=== PATIENT | female | born 1990 | race Caucasian/White ===

== ENCOUNTER 2021-04-10 17:31 | Emergency (ER) | payer OTHER, SELFPAY ==
[2021-04-10 17:35] VITALS: BP 133/85; PULSE 105; RESP 21; TEMP 36.7; O2SAT 98; BMI 30.6
--- NOTE | 2021-04-10 17:57 | ECG_ITS ---
APPROVED REPORT Exam: Resting ECG HR:87 bpm ECG Measurements Heart Rate 87 AXES [place] 170 P 62 QRSd 88 QRS -32 QT 376 T 44 QTc 452 Conclusion Normal sinus rhythm Left axis deviation Low voltage QRS Abnormal ECG Electronically signed by : Isaiah Rubalcava, 04/11/2021 09:06:43
--- NOTE | 2021-04-10 17:59 | HMH.EDUTC ---
[facility] [place] Disposition Clinical Impression: Exercise intolerance Disposition: Home, Self-Care Condition on Discharge: Good Instructions: DI for Tachycardia Additional Instructions: Make sure that you call your Family Doctor first thing tomorrow morning for appointment for further testing and evaluation Straight to the ER if you start having Chest pain or any life threatening symptoms Further instructions and treatment per your Family Doctor Return if needed Avoid strenuous exercise until seen and evaluated by your Family Doctor or Cardiology Referrals: Nathalie Deng APRN [Primary Care Provider] - As needed (Call office first thing in the morning) Time of Disposition: 18:26 Medical Decision Making - Reinier Inquiry Pt receiving controlled substance: No Reinier was queried for this patient: No Vital Signs: 04/10/21 17:35 04/10/21 18:27 Temperature 98.0 F 98.0 F Temperature Source Temporal Artery Scan Pulse Rate 105 H Pulse Rate [Right Brachial] 105 H Respiratory Rate 21 21 Blood Pressure 133/85 Blood Pressure [Right Arm] 133/85 Blood Pressure Mean [Right Arm] 101 Blood Pressure Source [Right Arm] Automatic Cuff Blood Pressure Position [Right Arm] Sitting 02 Sat by Pulse Oximetry 98 Oxygen Delivery Method Room Air - ECG Data Tracing #1 I reviewed this ECG and interpreted as documented below: ECG initial impression date: 04/10/21 ECG initial impression time: 18:00 ECG normal with no acute: arrhythmias, ischemia, conduction abnormalities, chamber hypertrophy Normal Sinus Rhythm: Yes Additional Comments: EKG discussed with and reviewed by Dr Gamze ER Physician ECG compared to prior tracings: there are no prior tracings available for comparison - Physician Consults Physician Consulted: Nathalie Deng Time: 18:00 Reason -: Other Comment/Response: Spoke with patient PCP and informed her of patient reporting that her HR elevated after running up a hill and was at the highest at 127 per recording from BP monitor she had at home and she reports that she felt winded but denied CP, palpations, or Chest discomfort Patient reports that she just started exercising and has not ran in awhile, Nathalie Deng APRN advised after discussing EKG to have patient call office in the morning and they would do the blood work to assess her thyroid, etc, halter monitor and referral to Cardiology if needed, again asked patient and denies any pain or discomfort and now HR is 88 and patient agreed with treatment plan Medical Decision Narrative: Discussed with patient about transfer to the ED and she states that nurse at clinic told her to go to the ED but she didnt want to she came to the [facility] discussed lab work and EKG patient agreed to EKG and then discussed with PCP and she advised if patient no longer feeling winded and not having any CP she could be seen in office for additional lab work and testing and patient declined lab work at [facility] states that she is not nor had she ever had any CP and she would follow up tomorrow for additional testing by her PCP [facility] HPI - General Stated complaint: high heart rate Time Seen by Provider: 04/10/21 17:59 Mode of Arrival: Ambulatory Source of Information: Patient Limitations: No Limitations Description of Symptoms (Recalled from Triage Doc. by RN): PATIENT C/O INCREASED HEART RATE. SHE STATES SHE RAN UP A HILL AND BECAME WINDED TODAY AND SINCE THEN HER HEART RATE HAS BEEN ELEVATED, HIGHEST BEING 127 HEENT Symptoms (Recalled from RN notes): No Resp Symptoms (Recalled from RN notes): No Skin Symptoms (Recalled from RN notes): No MS Symptoms (Recalled from RN notes): No Functional Status (Recalled from RN notes): WNL - History of Present Illness Provider Complaint: Patient states that she ran up a hill earlier today and felt winded and since then her heart rate has been up and down States that she is not having any chest pain palpations or discomfort but just felt like her heart rate was up
[2021-04-10 18:27] VITALS: BP 133/85; PULSE 105; RESP 21; TEMP 36.7; O2SAT 98
== END 2021-04-10 18:30 | disposition home or self-care (01) ==
PROVIDERS: Emergency Provider Nurse Practitioner; PCP Nurse Practitioner Family
DX: R06.09 Other forms of dyspnea (principal)
CPT/HCPCS: 93005; 99202; G0463

== ENCOUNTER 2021-12-18 13:50 | Emergency (ER) | payer OTHER, SELFPAY ==
[2021-12-18 16:00] VITALS: BP 132/78; PULSE 87; RESP 17; TEMP 36.9; O2SAT 99; BMI 24.5
--- NOTE | 2021-12-18 16:48 | HMH.EDUTC ---
[facility] [place] Disposition Clinical Impression: Fever blister Disposition: Home, Self-Care Condition on Discharge: Good Instructions: Cold Sores, DI for Cold Sores, Acyclovir Additional Instructions: Take medication as prescribed Follow up with Family Doctor if no improvement or any worsening of symptoms Return if needed Prescriptions: Acyclovir 400 mg PO TID 5 Days #15 tab [facility] Referrals: Nathalie Deng APRN [Primary Care Provider] - Time of Disposition: 16:57 Medical Decision Making - Reinier Inquiry Pt receiving controlled substance: No Reinier was queried for this patient: No Vital Signs: 12/18/21 16:00 12/18/21 16:53 Temperature 98.4 F 98.4 F Temperature Source Oral Pulse Rate 87 Pulse Rate [Right Brachial] 87 Respiratory Rate 17 17 Blood Pressure 132/78 Blood Pressure [Right Arm] 132/78 Blood Pressure Mean [Right Arm] 96 Blood Pressure Source [Right Arm] Automatic Cuff Blood Pressure Position [Right Arm] Sitting 02 Sat by Pulse Oximetry 99 Oxygen Delivery Method Room Air [facility] [place] HPI - General Stated complaint: possible sinus inf, fever blister Time Seen by Provider: 12/18/21 16:48 Mode of Arrival: Ambulatory Source of Information: Patient Limitations: No Limitations Description of Symptoms (Recalled from Triage Doc. by RN): PATIENT C/O NASAL CONGESTION AND FEVER BLISTERS HEENT Symptoms (Recalled from RN notes): Yes Resp Symptoms (Recalled from RN notes): No Skin Symptoms (Recalled from RN notes): No MS Symptoms (Recalled from RN notes): No Functional Status (Recalled from RN notes): WNL - History of Present Illness Provider Complaint: Patient states that she has been having nasal congestion but she has fever blisters all over her upper lip States that she has tried every over the counter she could find for it and they have continued to get worse - Related Data Home Medications Medication Instructions Recorded Confirmed Thyroid,Pork [[place] Thyroid] 60 mg PO DAILY 04/10/21 04/10/21 Previous Rx's Medication Instructions Recorded Acyclovir 400 mg PO TID 5 Days #15 tab 12/18/21 Allergies Allergy/AdvReac Type Severity Reaction Status Date / Time No Known Allergies Allergy Verified 04/10/21 17:55 - Worker's Comp Is this a Worker's Comp case?: No [facility] History - Hepatitis A Screen Drug use history?: No High risk sexual behaviors?: No History of sexually transmitted infection?: No Currently employed?: No Childcare worker?: No Do you have indoor plumbing?: Yes Do you have electricity?: Yes Attestation statement:: This patient has been screened for Hepatitis A risk factors. I have reviewed the patient's past medical history: Yes - Social History Alcohol Intake: never Occupational Status: other ROS Obtained: Yes All systems reviewed & no additional complaints, Yes Systems reviewed as appropriate & no additional complaints - Constitutional Constitutional: Reports system reviewed and no additional complaints, except as docu, Denies body ache, Denies chills, Denies fever(s) - ENT Ears, Nose, Mouth, and Throat: Reports system reviewed and no additional complaints, except as docu, Reports nasal congestion, Reports other (fever blisters) Physical Exam - General General appearance: alert, in no apparent distress - Expanded ENT Exam Nose exam: Absent: sinus tenderness Mouth exam: Present: other (fever blisters noted across upper lip with mild swelling) - Respiratory Respiratory exam: Present: normal lung sounds bilaterally. Absent: respiratory distress - Cardiovascular Cardiovascular exam: Present: regular rate, normal rhythm. Absent: JVD - Neurological Exam Neurological exam: Present: alert, oriented X3
[2021-12-18 16:53] VITALS: BP 132/78; PULSE 87; RESP 17; TEMP 36.9; O2SAT 99
== END 2021-12-18 17:09 | disposition home or self-care (01) ==
PROVIDERS: Emergency Provider Nurse Practitioner; PCP Nurse Practitioner Family
DX: B00.1 Herpesviral vesicular dermatitis (principal)
CPT/HCPCS: 99202; G0463

== ENCOUNTER → 2022-09-25 09:30 | Outpatient (CLI) | payer OTHER, SELFPAY ==
[2022-09-25 17:48] LABS: MANUAL DIFFERENTIAL MANUAL DIFFERENTIAL (MANUAL DIFF)
[2022-09-25 18:52] LABS: Basophils # 0.1 K/mm3 (0-0.2); Basophils % 1.3 % (0.1-2.0); Eosinophils # 0.1 K/mm3 (0.0-0.4); Eosinophils % 0.9 % (0.1-12.0); Hematocrit 38.9 % (37.0-47.0); Hemoglobin 12.1 g/dL (12.2-16.2); Lymphocytes # 1.6 K/mm3 (0.7-4.5); Lymphocytes % 29.4 % (10-50); Mean Corpuscular HGB Conc 31.1 g/dL (31.8-35.4); Mean Corpuscular Volume 89.8 fl (81-99); Mean Platelet Volume 8.7 fl (7.4-10.4); Monocytes # 0.3 K/mm3 (0.1-1.0); Monocytes % 6.3 % (1.7-9.3); Neutrophils # 3.4 K/mm3 (1.8-7.8); Neutrophils % 62.2 % (37.0-80.0); Platelet Count 403 K/mm3 (142-424); Red Blood Count 4.33 M/mm3 (4.20-5.40); Red Cell Distribution Width 13.5 % (11.5-17.5); White Blood Count 5.5 K/mm3 (4.8-10.8)
[2022-09-25 18:59] LABS: Alanine Aminotransferase 11 U/L (12-78); Albumin Level 4.3 g/dl (3.5-5.0); Albumin/Globulin Ratio 1.7 (1.1-1.8); Alkaline Phosphatase 87 U/L (38-126); Anion Gap 13.6 mEq/L (5-15); Aspartate Amino Transferase 18 U/L (14-36); Bilirubin,Total 0.4 mg/dl (0.2-1.3); Blood Urea Nitrogen 12 mg/dl (7-17); Calcium 9.6 mg/dl (8.4-10.2); Carbon Dioxide 27 mmol/L (22.0-30.0); Chloride 104 mmol/L (98-107); Estimated Glomerular Filt Rate 114 ml/min (>60); GFR (African American) 138 ML/MIN (>60); Globulin 2.5 g/dL (1.3-3.2); Glucose 88 mg/dl (74-100); Potassium 4.6 mmoL/L (3.5-5.1); Sodium 140 mmol/L (136-145); Total Protein,Serum 6.8 g/dl (6.3-8.2)
[2022-09-25 19:28] LABS: Thyroid Stimulating Hormone 2.15 uIU/mL (0.465-4.68)
[2022-09-25 19:30] LABS: Lymphocytes % 35 % (10-50); Monocytes % 7 % (2-9); Neutrophils % 58 % (42-76); Platelet Estimate Normal; RBC Morphology Normal; Total Cells Counted 100
== END ==
PROVIDERS: PCP Nurse Practitioner Family; Visit Provider Nurse Practitioner Family
DX: E03.9 Hypothyroidism, unspecified (principal); R53.83 Other fatigue
CPT/HCPCS: 80053; 84443; 85007; 85014; 85018; 85048; 85049

== ENCOUNTER → 2023-02-02 23:44 | Outpatient (CLI) | payer OTHER, SELFPAY | PROVIDERS: PCP Nurse Practitioner Family; Visit Provider Nurse Practitioner Family | DX: J02.9 Acute pharyngitis, unspecified (principal) | CPT/HCPCS: 87070 ==

== ENCOUNTER → 2023-07-27 09:00 | Outpatient (CLI) | payer OTHER, SELFPAY ==
[2023-07-27 18:01] LABS: Basophils # 0.1 K/mm3 (0-0.2); Basophils % 0.8 % (0.1-2.0); Eosinophils # 0.1 K/mm3 (0.0-0.4); Eosinophils % 1.5 % (0.1-12.0); Hematocrit 35.2 % (37.0-47.0); Hemoglobin 12.3 g/dL (12.2-16.2); Lymphocytes # 1.5 K/mm3 (0.7-4.5); Lymphocytes % 18.8 % (10-50); Mean Corpuscular HGB Conc 34.9 g/dL (31.8-35.4); Mean Corpuscular Hemoglobin 30.2 pg (27.0-31.2); Mean Corpuscular Volume 86.7 fl (81-99); Mean Platelet Volume 9.1 fl (7.4-10.4); Monocytes # 0.5 K/mm3 (0.1-1.0); Monocytes % 5.9 % (1.7-9.3); Neutrophils # 5.8 K/mm3 (1.8-7.8); Neutrophils % 73.1 % (37.0-80.0); Platelet Count 342 K/mm3 (142-424); Red Blood Count 4.06 M/mm3 (4.20-5.40); Red Cell Distribution Width 13.6 % (11.5-17.5); White Blood Count 7.9 K/mm3 (4.8-10.8)
[2023-07-27 18:08] LABS: Alanine Aminotransferase 20 U/L (12-78); Albumin/Globulin Ratio 1.4 (1.1-1.8); Alkaline Phosphatase 78 U/L (38-126); Anion Gap 13.4 mEq/L (5-15); Aspartate Amino Transferase 26 U/L (14-36); Bilirubin,Total 0.3 mg/dl (0.2-1.3); Blood Urea Nitrogen 10 mg/dl (7-17); Calcium 8.8 mg/dl (8.4-10.2); Carbon Dioxide 24 mmol/L (22.0-30.0); Chloride 106 mmol/L (98-107); Estimated Glomerular Filt Rate 114 ml/min (>60); GFR (African American) 138 ML/MIN (>60); Globulin 2.9 g/dL (1.3-3.2); Glucose 86 mg/dl (74-100); Potassium 4.4 mmoL/L (3.5-5.1); Sodium 139 mmol/L (136-145); Total Protein,Serum 6.9 g/dl (6.3-8.2)
[2023-07-27 18:24] LABS: Triiodothryronine (T3) Uptake 28 % (23.5-40.5)
[2023-07-27 18:25] LABS: Free T4 (Free Thyroxine) 0.71 ng/dl (0.78-2.19); T4 (Thyroxine) 6.3 ug/dl (5.53-11.0)
== END ==
PROVIDERS: PCP Nurse Practitioner Family; Visit Provider Nurse Practitioner Family
DX: Z00.00 Encounter for general adult medical examination without abnormal findings (principal); E03.9 Hypothyroidism, unspecified; F41.9 Anxiety disorder, unspecified
CPT/HCPCS: 80053; 84436; 84439; 84443; 84479; 85025

== ENCOUNTER → 2023-09-17 23:18 | Outpatient (CLI) | payer OTHER, SELFPAY ==
[2023-09-16 16:57] LABS: Free T4 (Free Thyroxine) 0.83 ng/dl (0.78-2.19)
[2023-09-16 16:59] LABS: T4 (Thyroxine) 7.2 ug/dl (5.53-11.0); Triiodothryronine (T3) Uptake 30 % (23.5-40.5)
[2023-09-16 17:13] LABS: Thyroid Stimulating Hormone 3.26 uIU/mL (0.465-4.68)
== END ==
PROVIDERS: PCP Nurse Practitioner Family; Visit Provider Nurse Practitioner Family
DX: E03.9 Hypothyroidism, unspecified (principal)
CPT/HCPCS: 84436; 84439; 84443; 84479

== ENCOUNTER 2023-12-09 21:13 | Outpatient (CLI) | payer OTHER, SELFPAY | END 2023-12-09 23:59 | LOC: LAB.DROPOF 21:14 | PROVIDERS: PCP Nurse Practitioner Family; Visit Provider Nurse Practitioner Family | DX: M54.50 Low back pain, unspecified (principal) | CPT/HCPCS: 87086 ==

== ENCOUNTER 2023-12-23 23:13 | Outpatient (CLI) | payer OTHER, SELFPAY ==
[2023-12-23 17:56] LABS: Free T4 (Free Thyroxine) 0.67 ng/dl (0.78-2.19)
[2023-12-23 19:07] LABS: T4 (Thyroxine) 5.7 ug/dl (5.53-11.0); Triiodothryronine (T3) Uptake 30 % (23.5-40.5)
[2023-12-23 19:20] LABS: Thyroid Stimulating Hormone 8.62 uIU/mL (0.465-4.68)
== END 2023-12-23 23:59 ==
LOC: LAB.DROPOF 23:13
PROVIDERS: PCP Nurse Practitioner Family; Visit Provider Nurse Practitioner Family
DX: E03.9 Hypothyroidism, unspecified (principal)
CPT/HCPCS: 84436; 84439; 84443; 84479

== ENCOUNTER 2024-03-14 15:08 | Emergency (ER) | payer OTHER, SELFPAY ==
--- NOTE | 2024-03-14 15:16 | XR_ITS ---
FINAL REPORT CLINICAL HISTORY: Right ankle pain COMPARISON: None FINDINGS: RIGHT ANKLE 3 views of the right ankle were obtained. There is no obvious acute fracture or dislocation. On the lateral views and ossific density over the dorsal aspect of the distal talus measuring 7 mm which may represent a small avulsion, age indeterminate. The mortise is intact. Visualized joint spaces are normally aligned. Soft tissues are unremarkable. IMPRESSION: Age-indeterminate small avulsion dorsal aspect distal talus. Reviewed, Interpreted and Dictated by Uriel Altamirano MD Transcribed by Nery Grossman Authenticated and [facility]
--- NOTE | 2024-03-14 15:16 | XR_ITS ---
FINAL REPORT CLINICAL HISTORY: Right foot pain COMPARISON: None FINDINGS: Three views of the right foot were obtained. There is no acute fracture or dislocation. There is an accessory navicular. The joint spaces are intact. There is no soft tissue abnormality. IMPRESSION: No acute process. Reviewed, Interpreted and Dictated by Uriel Altamirano MD Transcribed by Nery Grossman Authenticated and . [facility]
--- NOTE | 2024-03-14 15:16 | XR_ITS ---
FINAL REPORT CLINICAL HISTORY: Right lower leg pain COMPARISON: None FINDINGS: Two views of the right tibia/fibula were obtained. There is no acute fracture or dislocation. The joint spaces are intact. There is no soft tissue abnormality. IMPRESSION: No acute process. Reviewed, Interpreted and Dictated by Uriel Altamirano MD Transcribed by Nery Grossman Authenticated and [facility]
[2024-03-14 15:30] VITALS: BP 129/78; PULSE 78; RESP 19; TEMP 36.7; O2SAT 97; BMI 31.3
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
[2024-03-14 17:21] VITALS: BP 129/78; PULSE 78; RESP 19; TEMP 36.7; O2SAT 97
== END 2024-03-14 17:21 | disposition home or self-care (01) ==
PROVIDERS: Emergency Provider Nurse Practitioner; PCP Family Medicine
DX: S92.154A Nondisplaced avulsion fracture (chip fracture) of right talus, initial encounter for closed fracture (principal); M79.671 Pain in right foot; M25.571 Pain in right ankle and joints of right foot; X50.0XXA Overexertion from strenuous movement or load, initial encounter
CPT/HCPCS: 73590; 73610; 73620; 99212; 99214; G0463

== ENCOUNTER 2024-04-25 13:34 | Outpatient (CLI) | payer OTHER, SELFPAY ==
[2024-04-25 16:33] LABS: Basophils # 0.1 K/mm3 (0-0.2); Eosinophils % 0.9 % (0.1-12.0); Hematocrit 37.3 % (37.0-47.0); Lymphocytes # 1.3 K/mm3 (0.7-4.5); Lymphocytes % 27.2 % (10-50); Mean Corpuscular HGB Conc 32.2 g/dL (31.8-35.4); Mean Corpuscular Hemoglobin 27.7 pg (27.0-31.2); Mean Platelet Volume 8.6 fl (7.4-10.4); Monocytes # 0.4 K/mm3 (0.1-1.0); Monocytes % 8.6 % (1.7-9.3); Neutrophils % 62.4 % (37.0-80.0); Platelet Count 379 K/mm3 (142-424); Red Blood Count 4.34 M/mm3 (4.20-5.40); Red Cell Distribution Width 14.2 % (11.5-17.5); White Blood Count 4.8 K/mm3 (4.8-10.8)
== END 2024-04-25 23:59 | disposition home or self-care (01) ==
LOC: LAB.DROPOF 04-26 13:34
PROVIDERS: PCP Family Medicine; Visit Provider Family Medicine
DX: R59.1 Generalized enlarged lymph nodes (principal); Z79.899 Other long term (current) drug therapy
CPT/HCPCS: 84443; 85025

== ENCOUNTER 2024-08-07 10:15 | Outpatient (CLI) | payer OTHER, SELFPAY ==
[2024-08-07 16:41] LABS: Basophils # 0.1 K/mm3 (0-0.2); Basophils % 1.1 % (0.1-2.0); Eosinophils # 0.1 K/mm3 (0.0-0.4); Hematocrit 36.6 % (37.0-47.0); Hemoglobin 11.5 g/dL (12.2-16.2); Lymphocytes # 2.2 K/mm3 (0.7-4.5); Lymphocytes % 47.4 % (10-50); Mean Corpuscular HGB Conc 31.4 g/dL (31.8-35.4); Mean Corpuscular Hemoglobin 27.4 pg (27.0-31.2); Mean Corpuscular Volume 87.2 fl (81-99); Mean Platelet Volume 9.2 fl (7.4-10.4); Monocytes # 0.3 K/mm3 (0.1-1.0); Monocytes % 6.2 % (1.7-9.3); Neutrophils % 44.3 % (37.0-80.0); Platelet Count 374 K/mm3 (142-424); Red Cell Distribution Width 13.9 % (11.5-17.5); White Blood Count 4.6 K/mm3 (4.8-10.8)
[2024-08-07 17:13] LABS: Chloride 108 mmol/L (98-107); Sodium 139 mmol/L (136-145)
[2024-08-07 17:16] LABS: Alanine Aminotransferase 16 U/L (12-78); Albumin/Globulin Ratio 1.5 (1.1-1.8); Alkaline Phosphatase 50 U/L (38-126); Aspartate Amino Transferase 21 U/L (14-36); Bilirubin,Total 0.4 mg/dl (0.2-1.3); Blood Urea Nitrogen 9 mg/dl (7-17); Calcium 9.2 mg/dl (8.4-10.2); Carbon Dioxide 28 mmol/L (22.0-30.0); Cholesterol 154 mg/dl (140-200); Estimated Glomerular Filt Rate 113 ml/min (>60); GFR (African American) 137 ML/MIN (>60); Globulin 2.6 g/dL (1.3-3.2); Glucose 72 mg/dl (74-100); Total Protein,Serum 6.6 g/dl (6.3-8.2); Triglycerides 100 mg/dl (30-150); VLDL Cholesterol 20 mg/dL (0-40)
[2024-08-07 17:17] LABS: Chol/HDL Ratio 3.9 (1-3.5); HDL Cholesterol 39 mg/dl (40-60)
[2024-08-07 21:56] LABS: HIV (1&2) Antibody Rapid NONREACTIVE (NONREACTIVE)
[2024-08-07 23:15] LABS: 25-OH Vitamin D, Total 26.7 ng/mL (30-100)
[2024-08-07 23:17] LABS: Free Thyroxine Index 2.7 ug/dL (5.93-13.13); T4 (Thyroxine) 7.7 ug/dl (5.53-11.0); Triiodothryronine (T3) Uptake 35 % (23.5-40.5)
[2024-08-07 23:30] LABS: Thyroid Stimulating Hormone < 0.02 uIU/mL (0.465-4.68)
[2024-08-09 08:21] LABS: HCV Ab Non Reactive (Non Reactive)
== END 2024-08-07 23:59 | disposition home or self-care (01) ==
LOC: LAB.DROPOF 08-08 09:40
PROVIDERS: PCP Nurse Practitioner Family; Visit Provider Nurse Practitioner Family
DX: E03.9 Hypothyroidism, unspecified (principal); Z11.4 Encounter for screening for human immunodeficiency virus [HIV]; Z11.59 Encounter for screening for other viral diseases
CPT/HCPCS: 80050; 80053; 80061; 82306; 84436; 84443; 84479; 85025; 86803; 87389

== ENCOUNTER 2024-11-06 10:40 | Outpatient (CLI) | payer OTHER, SELFPAY ==
[2024-11-06 16:19] LABS: Basophils # 0.1 K/mm3 (0-0.2); Basophils % 1.2 % (0.1-2.0); Eosinophils # 0.1 K/mm3 (0.0-0.4); Eosinophils % 1.4 % (0.1-12.0); Hematocrit 37.5 % (37.0-47.0); Hemoglobin 12.1 g/dL (12.2-16.2); Lymphocytes # 1.8 K/mm3 (0.7-4.5); Lymphocytes % 35.5 % (10-50); Mean Corpuscular HGB Conc 32.3 g/dL (31.8-35.4); Mean Corpuscular Hemoglobin 27.9 pg (27.0-31.2); Mean Corpuscular Volume 86.3 fl (81-99); Monocytes # 0.4 K/mm3 (0.1-1.0); Monocytes % 7.2 % (1.7-9.3); Neutrophils # 2.7 K/mm3 (1.8-7.8); Neutrophils % 54.8 % (37.0-80.0); Platelet Count 364 K/mm3 (142-424); Red Blood Count 4.35 M/mm3 (4.20-5.40); Red Cell Distribution Width 14.2 % (11.5-17.5); White Blood Count 4.9 K/mm3 (4.8-10.8)
[2024-11-06 17:32] LABS: Thyroid Stimulating Hormone 0.49 uIU/mL (0.465-4.68)
== END 2024-11-06 23:59 | disposition home or self-care (01) ==
LOC: LAB.DROPOF 11-07 12:32
PROVIDERS: PCP Family Medicine; Visit Provider Family Medicine
DX: E03.9 Hypothyroidism, unspecified (principal)
CPT/HCPCS: 84443; 85025

== ENCOUNTER 2025-02-12 10:05 | Outpatient (CLI) | payer OTHER, SELFPAY ==
[2025-02-12 17:30] LABS: Basophils # 0.1 K/mm3 (0-0.2); Basophils % 1.2 % (0.1-2.0); Eosinophils # 0.1 K/mm3 (0.0-0.4); Eosinophils % 1.6 % (0.1-12.0); Hematocrit 37.7 % (37.0-47.0); Lymphocytes # 1.6 K/mm3 (0.7-4.5); Lymphocytes % 28.5 % (10-50); Mean Corpuscular HGB Conc 31.8 g/dL (31.8-35.4); Mean Corpuscular Hemoglobin 27.8 pg (27.0-31.2); Mean Corpuscular Volume 87.5 fl (81-99); Mean Platelet Volume 10.6 fl (7.4-10.4); Monocytes # 0.4 K/mm3 (0.1-1.0); Monocytes % 6.2 % (1.7-9.3); Neutrophils # 3.5 K/mm3 (1.8-7.8); Neutrophils % 62.1 % (37.0-80.0); Platelet Count 353 K/mm3 (142-424); Red Blood Count 4.31 M/mm3 (4.20-5.40); Red Cell Distribution Width 13.2 % (11.5-17.5); White Blood Count 5.6 K/mm3 (4.8-10.8)
[2025-02-12 18:29] LABS: Alanine Aminotransferase 21 U/L (12-78); Albumin Level 4.4 g/dl (3.5-5.0); Albumin/Globulin Ratio 1.8 (1.1-1.8); Alkaline Phosphatase 51 U/L (38-126); Amylase 66 U/L (30-110); Anion Gap 5.5 mEq/L (5-15); Aspartate Amino Transferase 30 U/L (14-36); Bilirubin,Total 0.7 mg/dl (0.2-1.3); Blood Urea Nitrogen 9 mg/dl (7-17); Calcium 9.6 mg/dl (8.4-10.2); Carbon Dioxide 31 mmol/L (22.0-30.0); Chloride 107 mmol/L (98-107); Estimated Glomerular Filt Rate 113 ml/min (>60); GFR (African American) 137 ML/MIN (>60); Globulin 2.5 g/dL (1.3-3.2); Glucose 66 mg/dl (74-100); Lipase 72 U/L (23-300); Potassium 4.5 mmoL/L (3.5-5.1); Sodium 139 mmol/L (136-145); Total Protein,Serum 6.9 g/dl (6.3-8.2)
[2025-02-12 18:46] LABS: T4 (Thyroxine) 4.6 ug/dl (5.53-11.0); Triiodothryronine (T3) Uptake 27 % (23.5-40.5)
[2025-02-12 19:03] LABS: Iron 107 ug/dL (37-170)
[2025-02-12 19:13] LABS: Total Iron Binding Capacity 411 ug/dL (265-497)
== END 2025-02-12 23:59 | disposition home or self-care (01) ==
LOC: LAB.DROPOF 02-14 11:47
PROVIDERS: PCP Nurse Practitioner Family; Visit Provider Nurse Practitioner Family
DX: E03.9 Hypothyroidism, unspecified (principal); R10.11 Right upper quadrant pain
CPT/HCPCS: 80053; 82150; 83540; 83550; 83690; 84436; 84443; 84479; 85025

== ENCOUNTER 2025-02-20 08:20 | Outpatient (CLI) | payer OTHER, SELFPAY ==
--- NOTE | 2025-02-20 08:30 | US_ITS ---
FINAL REPORT CLINICAL HISTORY: RUQ pain x 1 month COMPARISON: None FINDINGS: ULTRASOUND ABDOMEN FINDINGS: The liver is unremarkable. Spleen has a normal sonographic appearance. No abnormality of the gallbladder is seen. No biliary ductal dilatation is identified. Kidneys show no evidence of mass or obstruction. Pancreas is not well visualized. IVC and aorta are grossly unremarkable. There is no obvious fluid collection. IMPRESSION: Unremarkable abdominal ultrasound. Reviewed, Interpreted and Dictated by Bhavana Driscoll MD Transcribed by Nery Grossman Authenticated and [facility]
== END 2025-02-20 23:59 | disposition home or self-care (01) ==
LOC: RAD 08:21
PROVIDERS: PCP Nurse Practitioner Family; Visit Provider Nurse Practitioner Family
DX: R10.11 Right upper quadrant pain (principal)
CPT/HCPCS: 76700

== ENCOUNTER 2025-03-05 08:50 | Outpatient (CLI) | payer OTHER, SELFPAY ==
--- NOTE | 2025-03-05 09:00 | NM_ITS ---
FINAL REPORT CLINICAL HISTORY: RQU pain 9:05AM 8.35 MCI TC CHOLETEC 1.4 MCG CCK NO PAIN WITH CCK FINDINGS: The patient was injected with 8.35 mCi of technetium 99m Choletec and subsequently 1.4 mcg of CCK. Images of the abdomen were obtained for one hour. There is normal distribution of radiopharmaceutical throughout the liver. Sequential images demonstrate progressive accumulation of activity within the gallbladder. There is a calculated ejection fraction of 76%, within normal limits. IMPRESSION: Ejection fraction within normal limits. Reviewed, Interpreted and Dictated by Uriel Altamirano MD Transcribed by Nery Grossman Authenticated and [facility]
[2025-03-05] MEDS: SODIUM CHLORIDE 0.9% 10ML SYR (RAD ONLY) 10 ML IV (10:56)
[2025-03-05] MEDS: ISOTOPE CHOLETECH;1 DOSE (UP TO 15 MCI) IV (10:56)
[2025-03-05] MEDS: SINCALIDE 1.4 MCG in 0.9 % SODIUM CHLORIDE 50 ML 100 MCG IV (10:56)
== END 2025-03-05 23:59 | disposition home or self-care (01) ==
LOC: RAD 08:51
PROVIDERS: PCP Nurse Practitioner Family; Visit Provider Family Medicine
DX: R10.11 Right upper quadrant pain (principal)
CPT/HCPCS: 78227; A9537; J2805

== ENCOUNTER 2025-05-15 09:45 | Outpatient (CLI) | payer OTHER, SELFPAY ==
[2025-05-15 16:58] LABS: Basophils # 0.1 K/mm3 (0-0.2); Basophils % 1.3 % (0.1-2.0); Eosinophils # 0.1 Kmm3 (0.0-0.4); Eosinophils % 2.3 % (0.1-12.0); Hemoglobin 11.4 g/dL (12.2-16.2); Immature Granulocytes # 0.01 10^3uL; Immature Granulocytes % 0.2 %; Lymphocytes # 1.9 K/mm3 (0.7-4.5); Lymphocytes % 39.1 % (10-50); Mean Corpuscular HGB Conc 31.7 g/dL (31.8-35.4); Mean Corpuscular Hemoglobin 28.1 pg (27.0-31.2); Mean Corpuscular Volume 88.7 fl (81-99); Mean Platelet Volume 10.8 fl (7.4-10.4); Monocytes # 0.4 K/mm3 (0.1-1.0); Monocytes % 7.8 % (1.7-9.3); Neutrophils # 2.3 K/mm3 (1.8-7.8); Neutrophils % 49.3 % (37.0-80.0); Nucleated Red Blood Cells # 0 10^3/uL; Nucleated Red Blood Cells % 0 %; Platelet Count 316 K/mm3 (142-424); Red Blood Count 4.06 M/mm3 (4.20-5.40); Red Cell Distribution Width 13.3 % (11.5-17.5); Red Cell Distribution Width-SD 43.9 fL; White Blood Count 4.7 K/mm3 (4.8-10.8)
[2025-05-15 17:52] LABS: Alanine Aminotransferase 32 U/L (12-78); Albumin Level 3.9 g/dl (3.5-5.0); Albumin/Globulin Ratio 1.4 (1.1-1.8); Alkaline Phosphatase 65 U/L (38-126); Anion Gap 7.6 mEq/L (5-15); Aspartate Amino Transferase 33 U/L (14-36); Bilirubin,Total 0.4 mg/dl (0.2-1.3); Blood Urea Nitrogen 11 mg/dl (7-17); Calcium 9.3 mg/dl (8.4-10.2); Carbon Dioxide 28 mmol/L (22.0-30.0); Chloride 107 mmol/L (98-107); Chol/HDL Ratio 3.8 (1-3.5); Cholesterol 176 mg/dl (140-200); Estimated Glomerular Filt Rate 95 ml/min (>60); GFR (African American) 115 ML/MIN (>60); Globulin 2.7 g/dL (1.3-3.2); Glucose 78 mg/dl (74-100); HDL Cholesterol 46 mg/dl (40-60); Potassium 4.6 mmoL/L (3.5-5.1); Sodium 138 mmol/L (136-145); Total Protein,Serum 6.6 g/dl (6.3-8.2); Triglycerides 64 mg/dl (30-150); VLDL Cholesterol 13 mg/dL (0-40)
[2025-05-15 18:03] LABS: Direct LDL Cholesterol 99.15 mg/dL (100-129)
[2025-05-15 18:09] LABS: T4 (Thyroxine) 7.4 ug/dl (5.53-11.0)
[2025-05-15 18:41] LABS: Vitamin B12 581 pg/mL (239-931)
[2025-05-16 05:10] LABS: Hepatitis B Surface Antigen Negative (Negative)
--- OUTSIDE RECORDS SUMMARY | 2025-05-16 12:57 | XMS_ITS | Clinical Summary ---
Author Organization [facility] Address [address] [place] [address] Care Team Providers Care Theology Teacher Name Role Phone Unavailable Primary Care Provider Unavailabl e Family History Medical History Relation Name Comments Asthma Father Heart attack Father Asthma Mother Osteoporosis Mother Diabetes Other 1 Lung cancer Other 2 Relation Name Status Comments Father Mother Other 1 Other 2 Social History Tobacco Use Types Packs/Day Years Used Date Smoking Tobacco: Never Alcohol Use Standard Drinks/Week Comments No 0 (1 standard drink = 0.6 oz pure alcohol) Alcoholic Drinks/day: Never Drank Alcohol Comments Unknown Sex and Gender Information Value Date Recorded Sex Assigned at Not on file Legal Sex Female 8:04 PM EDT Gender Identity Not on file Sexual Orientation Not on file Last Filed Vital Signs Vital Sign Reading Time Taken Comments Blood Pressure - - Pulse - - Temperature - - Respiratory Rate - - Oxygen Saturation - - Inhaled Oxygen Concentration - - Weight 74.7 kg (164 lb 10.9 oz) 015 10:53 AM EDT Height 162.6 cm (5' 4 ) 01/23/2015 9:07 AM EST Body Mass Index 28.27 01/23/2015 9:07 AM EST Plan of Treatment Not on file
== END 2025-05-15 23:59 | disposition home or self-care (01) ==
LOC: LAB.DROPOF 05-16 12:54
PROVIDERS: PCP Nurse Practitioner Family; Visit Provider Nurse Practitioner Family
DX: E03.9 Hypothyroidism, unspecified (principal); D64.9 Anemia, unspecified; Z11.59 Encounter for screening for other viral diseases
CPT/HCPCS: 80053; 80061; 82607; 84436; 84443; 85025; 87340

== ENCOUNTER 2025-06-13 12:34 | Outpatient (CLI) | payer OTHER, SELFPAY ==
--- OUTSIDE RECORDS SUMMARY | 2025-06-18 12:36 | XMS_ITS | Clinical Summary ---
Author Organization [facility] Address [address] [place] [address] Care Team Providers Care Online Facilitator Name Role Phone Unavailable Primary Care Provider [...]
== END 2025-06-13 23:59 ==
LOC: LAB.DROPOF 06-18 12:34
PROVIDERS: PCP Nurse Practitioner Family; Visit Provider Nurse Practitioner Family
DX: N39.0 Urinary tract infection, site not specified (principal)
CPT/HCPCS: 87086

== ENCOUNTER 2025-08-14 09:00 | Outpatient (CLI) | payer OTHER, SELFPAY ==
[2025-08-14 20:48] LABS: Hematocrit 37.5 % (37.0-47.0); Hemoglobin 11.6 g/dL (12.2-16.2); Immature Granulocytes % 0 %; Mean Corpuscular HGB Conc 30.9 g/dL (31.8-35.4); Mean Corpuscular Hemoglobin 27.6 pg (27.0-31.2); Mean Corpuscular Volume 89.3 fl (81-99); Nucleated Red Blood Cells % 0 %; Platelet Count 334 K/mm3 (142-424); Red Blood Count 4.20 M/mm3 (4.20-5.40); Red Cell Distribution Width-SD 41.3 fL; White Blood Count 4.5 K/mm3 (4.8-10.8)
[2025-08-14 21:15] LABS: Iron 101 ug/dL (37-170)
[2025-08-14 21:25] LABS: Total Iron Binding Capacity 313 ug/dL (265-497)
[2025-08-14 21:30] LABS: Triiodothryronine (T3) Uptake 36 % (23.5-40.5)
[2025-08-14 21:32] LABS: Free Thyroxine Index 5.1 ug/dL (5.93-13.13); T4 (Thyroxine) 14.1 ug/dl (5.53-11.0)
[2025-08-14 21:45] LABS: Thyroid Stimulating Hormone < 0.02 uIU/mL (0.465-4.68)
[2025-08-14 21:55] LABS: Ferritin 26.7 ng/ml (6.24-137)
[2025-08-14 22:05] LABS: Hepatitis C Ab Qual. W/ RFX NEGATIVE (Negative)
[2025-08-14 22:09] LABS: Vitamin B12 448 pg/mL (239-931)
--- OUTSIDE RECORDS SUMMARY | 2025-08-15 09:18 | XMS_ITS | Clinical Summary ---
Author Organization [facility] Address [address] [place] [address] Care Team Providers Care Dumper [employer] Name Role Phone Unavailable Primary Care Provider [...]
[2025-08-15 15:35] LABS: Reticulocyte % (Auto) 1.0 % (0.9-3.2)
== END 2025-08-14 23:59 ==
LOC: LAB.DROPOF 08-15 09:09
PROVIDERS: PCP Nurse Practitioner Family; Visit Provider Nurse Practitioner Family
DX: D64.9 Anemia, unspecified (principal); E03.9 Hypothyroidism, unspecified; Z11.4 Encounter for screening for human immunodeficiency virus [HIV]; Z11.59 Encounter for screening for other viral diseases
CPT/HCPCS: 82607; 82668; 82728; 83540; 83550; 84436; 84443; 84479; 85025; 85044; 86803; 87389